=== PATIENT | male | born 1975 | race Caucasian/White ===

== ENCOUNTER 2019-03-10 15:11 | Emergency (ER) | payer SELFPAY ==
[2019-03-10 15:33] VITALS: BP 105/58; PULSE 60; TEMP 97.5; BMI 26.5
[2019-03-10] MEDS ORDERED: morphine CARPU-JECT 4 MG/1 ML DISP.SYRIN IVPUSH ONE (16:04)
[2019-03-10] MEDS ORDERED: DIPHTH,PERTUSS(ACELL),TET 0.5 ML DISP.SYRIN IM ONE ×2 (16:04→16:33)
[2019-03-10] MEDS ORDERED: ceFAZolin 2 GRAM PREMIX BAG IVPB ONE (16:17)
[2019-03-10] MEDS ORDERED: CEFAZOLIN 1 GM/D5W 2 GM/100 ML BAG ONE (16:25)
--- NOTE | 2019-03-10 16:27 | PDOC ---
History of Present Illness - General Chief Complaint: Injury Stated Complaint: RT POINTER LAC Time Seen by Provider: 03/10/19 15:46 History Source: Patient Exam Limitations: Language Barrier ([employer] #[id number]) - History of Present Illness Initial Comments: 03/10/19 16:21 HISTORY OF PRESENT ILLNESS: 43-year-old male denies medical history who presents emergency department for evaluation of laceration sustained to the right index finger while at work today. 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 When using a wet saw to cut through the tile the saw grabbed the right index finger and lacerated the tip. Patient reports immediately washed his hands and came to the emergency department for evaluation. He did not take any treatment for pain prior to arrival. Patient is unsure of his last tetanus shot but believes it was 7 or 8 years ago. No recent travel or sick contacts. PAST MEDICAL HISTORY: Denies past medical history SURGICAL HISTORY: Denies ALLERGIES: No known drug allergies REVIEW OF SYSTEMS General/Constitutional: Denies fever or chills. Denies weakness, weight change. HEENT: Denies change in vision. Denies ear pain or discharge. Denies sore throat. Cardiovascular: Denies chest pain or shortness of breath. Respiratory: Denies cough, wheezing, or hemoptysis. Gastrointestinal: Denies nausea, vomiting, diarrhea or constipation. Denies rectal bleeding. Genitourinary: Denies dysuria, frequency, or change in urination. Musculoskeletal: see HPI Skin and breasts: Denies rash or easy bruising. Neurologic: Denies headache, vertigo, loss of consciousness, or loss of sensation. Psychiatric: Denies depression or anxiety. Endocrine: Denies increased thirst. Denies abnormal weight change. Hematologic/Lymphatic: Denies anemia, easy bleeding, or history of blood clots. Allergic/Immunologic: Denies hives or skin allergy. Denies latex allergy. PHYSICAL EXAM General Appearance: Well-appearing, appropriately dressed. No apparent distress , no intoxication. Musculoskeletal/Extremities: Laceration present to the fingertip of the right index finger. Laceration involves the nailbed and there is obvious tissue loss of the distal one third of the fingernail. Exposed bone is present to flap laceration at the distal tip. Patient with full sensation and range of motion. Bleeding is controlled at present. Integumentary: Appropriate color, dry, warm. No cyanosis, erythema, jaundice or rash Neurologic: sales team recruiter II-XII intact. Fully oriented, alert. Appropriate mood/affect. Motor strength 5/5. No appreciable EOM palsy, facial droop or sensory deficit. Past History - Past Medical History Allergies/Adverse Reactions: Allergies Allergy/AdvReac Type Severity Reaction Status Date / Time No Known Allergies Allergy Verified 03/10/19 15:29 Home Medications: Ambulatory Orders Amox-Tr/K Cl [Augmentin - 875Mg Tablet] 1 tab PO BID #20 tablet 03/10/19 COPD: No - Immunization History Immunization Up to Date: Yes - Suicide/Smoking/Psychosocial Hx Smoking History: Never smoked Hx Alcohol Use: No Drug/Substance Use Hx: No *Physical Exam - Vital Signs Last Vital Signs Temp Pulse Resp BP Pulse Ox 97.5 F L 60 17 105/58 L 99 03/10/19 15:29 03/10/19 15:29 03/10/19 15:29 03/10/19 15:29 03/10/19 15:29 Procedures - Consent Consent obtained: Verbal, From Patient - Laceration/Wound Repair Right Finger 2nd digit Wound Length: 2.6 to 5.0 cm Wound Explored: clean, no foreign body present Wound's Depth, Shape: into muscle, flap, nail-avulsed Irrigated w/ Saline: Yes Betadine Prep: Yes Anesthesia: 1% Lidocaine Amount of Anesthetic (ccs): 4 Wound Debrided: minimal Wound Repaired With: Sutures Suture Size/Type: 5:0, 3:0, nylon Number of Sutures: 9 Layer Closure: No Sterile Dressing Applied: Yes Splint Applied: No Sling Applied: No Progress: 03/10/19 18:31 Patient tolerated well ED Treatment Course - LABORATORY CBC & Chemistry Diagram: 03/10/19 16:07 03/10/19 16:07 - RADIOLOGY Radiology Studies Ordered: Category Date Time Status FINGER(S) RIGHT [RAD] Stat Radiology 03/10/19 16:04 Ordered Medical Decision Making - Medical Decision Making 03/10/19 16:27 A/P: 43-year-old male with open fracture to the right index finger Neurovascular intact Exposed bone present in laceration Distal one third of fingernail is missing Preoperative Labs IV Boostrix X-rays Morphine 4 mg IV Ancef 2 g IV 03/10/19 17:16 X-rays as read by Dr. Moscoso: Amputation of the tip of the right second finger including the tip of the distal phalangeal tuft Dr. Fuentes paged 03/10/19 18:[address] Fuentes who states will be closed with simple interrupted sutures. Dr. Fuentes recommends using 3-0 nylon for sutures directly through the nail. Suture repair-see procedure note for details Patient's creatinine noted to be 1.7. Likely from dehydration. 1 L normal saline Discharge home to follow-up with Dr. Fuentes as an outpatient. *DC/Admit/Observation/Transfer Diagnosis at time of Disposition: Open fracture, JONAH (acute kidney injury) Partial traumatic transphalangeal amputation of right index finger Qualifiers: Encounter type: initial encounter Qualified Code(s): S68.620A - Partial traumatic transphalangeal amputation of right index finger, initial encounter - Discharge Dispostion Disposition: HOME Condition at time of disposition: Stable Decision to Admit order: No - Prescriptions Prescriptions: Amox-Tr/K Cl [Augmentin - 875Mg Tablet] 1 tab PO BID #20 tablet - Referrals Referrals: Jonas Fuentes MD [Staff Physician] - - Patient Instructions Additional Instructions: Rest, elevate, avoid strenuous activity or heavy lifting until sutures are removed Leave dressing on for the next 24 hours, Then may remove dressing gently and wash area with soap and water. Reapply bacitracin ointment and dressing daily for the next 5 days On day #6 keep the wound protected and cover as needed until sutures are removed allowing wound to start to dry May use Tylenol or Motrin for pain relief You have been given a referral for a hand surgeon. Call to schedule an appointment next week for reevaluation and for potential suture removal in 7 days. Suture removal in : 7-10 Days Descanse, levante, evite la actividad extenuante o el levantamiento de pesas hasta que se retiren las suturas Deje vestirse shirley las prximas 24 horas, Luego puede quitar el apsito suavemente y ghada el earnest con agua y jabn. Vuelva a aplicar el ungento de bacitracina y el aderezo diariamente shirley los prximos 5 silveira. En el da 6, mantenga la herida protegida y cbrala segn sea necesario hasta que se retiren las suturas, lo que permite que la herida comience a secarse Puede usar Tylenol o Motrin para aliviar el dolor Se le gong dado crys referencia para un cirujano de la mano. Llame para programar crys sara la prxima semana para crys reevaluacin y para crys posible eliminacin de la sutura en 7 silveira. Retirada de suturas en: 7-10 Silveira. - Post Discharge Activity Forms/Work/School Notes: Back to Work
[2019-03-10] MEDS ORDERED: CEFAZOLIN 2 GM/D5W 2 GM/50 ML ML IVPB ONE (16:30)
[2019-03-10] MEDS ORDERED: morphine SULFATE 4 MG/ML VIAL ONE (16:36)
[2019-03-10 17:13] LABS: ANION GAP 7 MMOL/L (8-16); BLOOD UREA NITROGEN 21 mg/dL (7-18); CALCIUM 8.8 mg/dL (8.5-10.1); CHLORIDE 104 mmol/L (98-107); CO2 25 mmol/L (21-32); CREATININE 1.7 mg/dL (0.55-1.3); GLUCOSE,RANDOM 110 mg/dL (74-106); POTASSIUM 3.9 mmol/L (3.5-5.1); SODIUM 136 mmol/L (136-145)
[2019-03-10 17:14] LABS: BASO % 0.3 % (0-2.0); EOS % 0.6 % (0-4.5); HEMATOCRIT 40.1 % (35.4-49); HEMOGLOBIN 13.8 GM/dL (11.7-16.9); LYMPH % 12.4 % (8-40); MCH 29.8 pg (25.7-33.7); MCHC 34.4 g/dl (32.0-35.9); MEAN CELL VOLUME 86.5 fl (80-96); MEAN PLT VOLUME 7.6 fl (7.5-11.1); MONO % 5.6 % (3.8-10.2); NEUT % 81.1 % (42.8-82.8); PLATELET COUNT 295 K/MM3 (134-434); RBC 4.64 M/mm3 (4.00-5.60); WHITE BLOOD COUNT 10.5 K/mm3 (4.0-10.0)
[2019-03-10 17:22] LABS: INR 1.06 (0.83-1.09); PROTHROMBIN TIME (PATIENT) 12.5 SEC (9.7-13.0)
[2019-03-10] MEDS ORDERED: SODIUM CHLORIDE 1,000 ML IV STA (18:27)
== END 2019-03-10 19:37 | disposition home or self-care (01) ==
LOC: JERFT 15:11
PROC: 3E0234Z Introduction of Serum, Toxoid and Vaccine into Muscle, Percutaneous Approach (ICD-10-PCS; principal; 2019-03-10)
DX: S68.620A Partial traumatic transphalangeal amputation of right index finger, initial encounter (principal); S62.660B Nondisplaced fracture of distal phalanx of right index finger, initial encounter for open fracture; W29.8XXA Contact with other powered hand tools and household machinery, initial encounter; Y93.89 Activity, other specified; Y92.69 Other specified industrial and construction area as the place of occurrence of the external cause; Y99.0 Civilian activity done for income or pay
CPT/HCPCS: 36415; 73140-TC-RT-FY; 80048; 85025; 85610; 86850; 86900; 86901; 90715; 99283-25; J7030